=== PATIENT | female | born 1980 | race Caucasian/White ===

== ENCOUNTER 2017-06-26 15:28 | Emergency (ER) | payer OTHER ==
[2017-06-26 15:42] VITALS: BP 128/59; PULSE 80; TEMP 98.3; BMI 24.7
--- NOTE | 2017-06-26 16:54 | PDOC ---
History of Present Illness - General History Source: Patient Exam Limitations: No Limitations - History of Present Illness Initial Comments: 06/26/17 17:12 The patient is a 36 year old female with no significant PMH who presents to the emergency department with epigastric pain beginning approximately 10 days ago, She describes her epigastric pain as a moderate burning sensation that radiates to her chest with associated nausea, which is worsened by eating. She reports taking Tylenol and Zantac to minimal relief. She denies vomiting. She denies fevers or chills. She denies prior history of epigastric pain. She states LMP was 3 weeks ago. The patient denies diarrhea and constipation. Denies chest pain, shortness of breath, headache and dizziness. Denies dysuria, frequency, urgency and hematuria. Allergies: NKA Past surgical history: None reported. Social history: No reported cigarette, alcohol, or drug use. PCP: Dr. Gilbert <Saúl Hernandez - Last Filed: 06/26/17 17:12> <Mary Musa - Last Filed: 06/26/17 19:22> - General Chief Complaint: Pain Stated Complaint: ABD PAIN Time Seen by Provider: 06/26/17 16:54 Past History <Saúl Hernandez - Last Filed: 06/26/17 17:12> - Past Medical History Asthma: No Cancer: No Cardiac Disorders: No COPD: No Diabetes: No HTN: No Seizures: No Thyroid Disease: No - Suicide/Smoking/Psychosocial Hx Smoking Status: No Smoking History: Never smoked Have you smoked in the past 12 months: No Number of Cigarettes Smoked Daily: 0 Information on smoking cessation initiated: No Hx Alcohol Use: No Drug/Substance Use Hx: No Substance Use Type: None Hx Substance Use Treatment: No <Mary Musa - Last Filed: 06/26/17 19:22> - Past Medical History Allergies/Adverse Reactions: Allergies Allergy/AdvReac Type Severity Reaction Status Date / Time No Known Allergies Allergy Verified 06/26/17 15:42 Home Medications: Ambulatory Orders Famotidine [Pepcid] 20 mg PO BID #60 tablet 06/26/17 Review of Systems - Review of Systems Able to Perform ROS?: Yes Comments:: 06/26/17 17:12 GENERAL/CONSTITUTIONAL: No fever or chills. No weakness. HEAD, EYES, EARS, NOSE AND THROAT: No change in vision. No ear pain or discharge. No sore throat. CARDIOVASCULAR: No chest pain or shortness of breath. RESPIRATORY: No cough, wheezing, or hemoptysis. GASTROINTESTINAL: (+) Burning epigastric pain with radiation to chest. (+) Nausea. No vomiting, diarrhea or constipation. GENITOURINARY: No dysuria, frequency, or change in urination. MUSCULOSKELETAL: No joint or muscle swelling or pain. No neck or back pain. SKIN: No rash NEUROLOGIC: No headache, vertigo, loss of consciousness, or change in strength/ sensation. ENDOCRINE: No increased thirst. No abnormal weight change. HEMATOLOGIC/LYMPHATIC: No anemia, easy bleeding, or history of blood clots. ALLERGIC/IMMUNOLOGIC: No hives or skin allergy. <Saúl Hernandez - Last Filed: 06/26/17 17:12> *Physical Exam - Vital Signs Last Vital Signs Temp Pulse Resp BP Pulse Ox 98.3 F 80 18 128/59 98 06/26/17 15:40 06/26/17 15:40 06/26/17 15:40 06/26/17 15:40 06/26/17 15:40 - Physical Exam Comments: 06/26/17 17:12 GENERAL: Awake, alert, and fully oriented, in no acute distress HEAD: No signs of trauma EYES: PERRLA, EOMI, sclera anicteric, conjunctiva clear ENT: Auricles normal inspection, hearing grossly normal, nares patent, oropharynx clear without exudates. Moist mucosa NECK: Normal ROM, supple, no lymphadenopathy, JVD, or masses LUNGS: Breath sounds equal, clear to auscultation bilaterally. No wheezes, and no crackles HEART: Regular rate and rhythm, normal S1 and S2, no murmurs, rubs or gallops ABDOMEN: (+) Mild tenderness to deep palpation in epigastrium. Soft, normoactive bowel sounds. No guarding, no rebound. No masses EXTREMITIES: Normal range of motion, no edema. No clubbing or cyanosis. No cords, erythema, or tenderness NEUROLOGICAL: Cranial nerves II through XII grossly intact. Normal speech, normal gait SKIN: Warm, Dry, normal turgor, no rashes or lesions noted. <Saúl Hernandez - Last Filed: 06/26/17 17:12> - Vital Signs Last Vital Signs Temp Pulse Resp BP Pulse Ox 98.3 F 80 18 128/59 98 06/26/17 15:40 06/26/17 15:40 06/26/17 15:40 06/26/17 15:40 06/26/17 15:40 <Mary Musa - Last Filed: 06/26/17 19:22> ED Treatment Course - LABORATORY CBC & Chemistry Diagram: 06/26/17 17:35 06/26/17 17:35 <Mary Musa - Last Filed: 06/26/17 19:22> Medical Decision Making - Medical Decision Making 06/26/17 19:16 Pt presents to the ED complaining of epigastric pain without nausea, vomiting or changes in bowel habits. Minimal abdominal tenderness on exam. Labs checked to rule out biliary or pancreatic disease. Will discharge home with rx for pepsicd and GI referral. <Mary Musa - Last Filed: 06/26/17 19:22> *DC/Admit/Observation/Transfer - Attestations Scribe Attestion: 06/26/17 17:12 Documentation prepared by Saúl Hernandez, acting as medical cost consultant for Mary Musa MD. <Saúl Hernandez - Last Filed: 06/26/17 17:12> - Discharge Dispostion Admit: No <Mary Musa - Last Filed: 06/26/17 19:22> Diagnosis at time of Disposition: Epigastric pain - Discharge Dispostion Disposition: HOME Condition at time of disposition: Good - Prescriptions Prescriptions: Famotidine [Pepcid] 20 mg PO BID #60 tablet - Referrals Referrals: Theresa Gilbert [Primary Care Provider] - Humberto Ellis MD [Staff Physician] - - Patient Instructions Printed Discharge Instructions: DI for Abdominal Pain-Adult Additional Instructions: return to the ED for severe abdominal pain, fevers, severe nausea and vomiting, other new or changing symptoms. - Post Discharge Activity
[2017-06-26] MEDS ORDERED: FAMOTIDINE IV 20 MG/12 ML VIAL IVPUSH ONE (16:58)
[2017-06-26] MEDS ORDERED: SODIUM CHLORIDE 1,000 ML IV STA (16:59)
[2017-06-26] MEDS ORDERED: FAMOTIDINE 20 MG/50 ML IVPB 20 MG/50 ML MG IVPB ONE (17:40)
[2017-06-26 17:41] LABS: BASO % 0.5 % (0-2.0); EOS % 7.7 % (0-4.5); HEMATOCRIT 37.9 % (32.4-45.2); HEMOGLOBIN 13.1 GM/dL (10.7-15.3); LYMPH % 22.8 % (8-40); MCH 29.5 pg (25.7-33.7); MCHC 34.6 g/dl (32.0-36.0); MEAN CELL VOLUME 85.2 fl (80-96); MEAN PLT VOLUME 7.8 fl (7.5-11.1); MONO % 7.2 % (3.8-10.2); NEUT % 61.8 % (42.8-82.8); PLATELET COUNT 260 K/MM3 (134-434); RBC 4.45 M/mm3 (3.60-5.2); RDW 13.4 % (11.6-15.6); WHITE BLOOD COUNT 7.8 K/mm3 (4.0-10.0)
[2017-06-26 17:45] LABS: HCG,QUALITATIVE URINE NEGATIVE
[2017-06-26 17:46] LABS: URINE APPEARANCE CLOUDY; URINE BILIRUBIN NEGATIVE (<2.0 mg/dL); URINE BLOOD 1+ (NEGATIVE); URINE COLOR YELLOW; URINE GLUCOSE (UA) NEGATIVE (NEGATIVE); URINE KETONE NEGATIVE (NEGATIVE); URINE LEUK ESTERASE NEGATIVE (NEGATIVE); URINE NITRITE NEGATIVE (NEGATIVE); URINE PROTEIN NEGATIVE (NEGATIVE); URINE UROBILINOGEN NEGATIVE mg/dL (0.2-1.0)
[2017-06-26 17:51] LABS: EPI CELLS RARE /HPF (FEW); URINE MUCUS RARE; YEAST MODERATE
[2017-06-26 18:11] LABS: ALBUMIN 4.1 g/dl (3.4-5.0); ALK PHOS 70 U/L (45-117); ANION GAP 4 (8-16); BILIRUBIN,TOTAL 0.1 mg/dL (0.2-1.0); BLOOD UREA NITROGEN 14 mg/dL (7-18); CALCIUM 9.1 mg/dL (8.5-10.1); CHLORIDE 105 mmol/L (98-107); CO2 29 mmol/L (21-32); CREATININE 0.5 mg/dL (0.55-1.02); GLUCOSE,RANDOM 82 mg/dL (74-106); LIPASE 106 U/L (73-393); POTASSIUM 3.9 mmol/L (3.5-5.1); SGOT/AST 25 U/L (15-37); SGPT/ALT 42 U/L (12-78); SODIUM 138 mmol/L (136-145)
[2017-06-26] MEDS ORDERED: MAG HYDROX/AL HYDROX/SIMETH 30 ML UNIT-DOSE CUP PO ONE (18:19)
[2017-06-26] MEDS ORDERED: MAG HYDROX/AL HYDROX/SIMETH 30 ML UNIT-DOSE CUP ONE (18:40)
== END 2017-06-26 19:47 | disposition home or self-care (01) ==
LOC: JER 15:28
DX: R10.13 Epigastric pain (principal)
CPT/HCPCS: 36415; 80053; 81003; 81015; 83690; 84703; 85025; 99283-25; J7030